=== PATIENT | male | born 1985 | race Caucasian/White ===

== ENCOUNTER 2016-08-19 04:12 | Emergency (ER) | payer OTHER ==
[~2016-08-19] VITALS: Ht 180.3 cm; Wt 97.0 kg
[~2016-08-19 04:12] MED LIST: FLUT9.9S NASAL; IBUP-1542 PO; ZOF8 PO
[2016-08-19 04:17] VITALS: Ht 180.3 cm; Wt 97.0 kg
[2016-08-19] MEDS ORDERED: FLUT9.9S NASAL (04:46)
[2016-08-19] MEDS ORDERED: IBUP-1542 PO (04:46)
[2016-08-19] MEDS ORDERED: AMOX1TAB10 PO (04:46)
[2016-08-19] MEDS ORDERED: CETI10CA PO (04:46)
--- NOTE | 2016-08-19 05:13 | ERD ---
ER Documentation Chief Complaint Date/Time DATE: 08/19/16 TIME: 05:11 Chief Complaint SEVERE SINUS PRESSURE/PAIN WITH RIGHT SIDED MOUTH PAIN X 1 WK. WORSE TONIGH HPI 31-year-old male presents here in emergency department for complaint right facial pain runny nose nasal congestion, purulent discharge from the right naris started one week ago. Patient discussed the pain as throbbing pain, 6/10 scale, feels pressure in the right side of the face. Patient denies any trauma. Patient denies any fever or chills. Patient denies any swelling. Patient is not to open and close the mouth without any difficulty. ROS All systems reviewed and are negative except as per history of present illness. Medications Home Meds Active Scripts Cetirizine Hcl* (Zyrtec*) 10 Mg Capsule, 10 MG PO DAILY, #30 TAB.CHEW Prov:JANIS SANCHEZ NP 08/19/16 Fluticasone Propionate (Flonase Allergy Relief) 9.9 [address] [place].susp, 2 SPRAY NASAL DAILY, #1 BOTTLE TO EACH NOSTRIL Prov:JANIS SANCHEZ NP 08/19/16 Ibuprofen* (Motrin*) 600 Mg Tab, 600 MG PO Q6H Y for PAIN AND OR ELEVATED TEMP, #30 TAB Prov:JANIS SANCHEZ NP 08/19/16 Amoxicillin/Potassium Clav (Amox-Clav 875-125 mg Tablet) 875-125 mg Tab, 1 TAB PO BID for 7 Days, #14 TAB Prov:JANIS SANCHEZ NP 08/19/16 Fluticasone Propionate (Flonase Allergy Relief) 9.9 [address] [place].susp, 1 SPRAY NASAL DAILY, #1 BOTTLE TO EACH NOSTRIL Prov:MAU KENNY DO 04/14/15 Ondansetron Hcl* (Zofran* ODT) 8 mg -ODT Tab.disper, 8 MG PO Q6 Y for NAUSEA AND /OR VOMITING, #10 TAB Prov:LUIS WHITNEY PA-C 02/10/15 Ibuprofen* (Ibuprofen*) 600 Mg Tablet, 600 MG PO Q6H Y for PA, #30 TAB Prov:JANIS SANCHEZ NP 11/29/14 Allergies Allergies: Coded Allergies: No Known Allergy (Unverified , 02/10/15) PMhx/Soc Medical and Surgical Hx: pt denies Medical Hx, pt denies Surgical Hx History of Surgery: No Anesthesia Reaction: No Hx Neurological Disorder: No Hx Respiratory Disorders: No Hx Cardiac Disorders: No Hx Psychiatric Problems: No Hx Miscellaneous Medical Probl: No Hx Alcohol Use: No Hx Substance Use: No Hx Tobacco Use: No Smoking Status: Never smoker FmHx Family History: No coronary disease, No diabetes, No other Physical Exam Vitals Vital Signs Date Time Temp Pulse Resp B/P Pulse Ox O2 Delivery O2 Flow Rate FiO2 08/19/16 04:17 97.7 67 20 148/100 96 Physical Exam GENERAL: The patient is well developed and appropriate for usual state of health, in no apparent distress. HEENT: Atraumatic. Ears: Normal tympanic membrane, no erythema or bulging. No ear canal swelling. No ear discharge. Nose: Right naris noted to be erythematous , no purulent discharge noted at this time. Right maxillary sinus tenderness noted. Left naris is normal, normal nasal discharge. Nontender left maxillary sinus. Throat: oropharynx clear. No tonsillar swelling or tonsillar exudates. No lymphadenopathy. CHEST: Clear to auscultation bilaterally. There are no rales, wheezes or rhonchi. HEART: Regular rate and rhythm. No murmurs, clicks, rubs or gallops. No S3 or S4. ABDOMEN: Soft, nontender and nondistended. Good bowel sounds. No rebound or guarding. No gross peritonitis. No gross organomegaly or masses. No De La Cruz sign or McBurney point tenderness. BACK: No midline or flank tenderness. EXTREMITIES: Equal pulses bilaterally. There is no peripheral clubbing, cyanosis or edema. No focal swelling or erythema. Full range of motion. Grossly neurovascularly intact. NEURO: Alert and oriented. Cranial nerves 2-12 intact. Motor strength in all 4 extremities with 5/5 strength. Sensation grossly intact. Normal speech and gait. SKIN: There is no apparent rash or petechia. The skin is warm and dry. HEMATOLOGIC AND LYMPHATIC: There is no evidence of excessive bruising or lymphedema. No gross cervical, axillary, or inguinal lymphadenopathy. Procedures/MDM Medical decision making: Patient's symptoms most likely consistent with acute rhinosinusitis. Most likely bacterial. No symptoms of sepsis. Patient appears well and is hemodynamically STABLE. No symptoms of facial cellulitis. Patient was given a prescription for ibuprofen, Augmentin, Flonase, Zyrtec, is advised to apply warm compresses on affected area, follow-up with primary care doctor in 2-3 days for reevaluation of symptoms. Patient is advised to return to emergency department for any worsening symptoms. Departure Diagnosis: Primary Impression: Acute rhinosinusitis Condition: Stable Patient Instructions: Sinusitis, JANIS Rowe NP Aug 19, 2016 05:13
== END 2016-08-19 06:02 | disposition home or self-care (01) ==
LOC: FTE 04:12
DX: J01.00 Acute maxillary sinusitis, unspecified (principal)
CPT/HCPCS: 99283

== ENCOUNTER 2016-10-19 10:21 | Emergency (ER) | payer OTHER ==
[~2016-10-19] VITALS: Wt 92.5 kg
[~2016-10-19 10:21] MED LIST changes: +AMOX1TAB10 PO; +CETI10CA PO
[2016-10-19] MEDS ORDERED: CEPH-443 PO (11:06)
--- NOTE | 2016-10-19 11:16 | ERD ---
ER Documentation Chief Complaint Date/Time DATE: 10/19/16 TIME: 11:12 Chief Complaint R THUMB SWELLING FROM DOG BITE. SOME REDNESS AND DRAINAGE HPI This is a 31-year-old male presenting to the emergency department after a dog scratch. Patient states yesterday he was scratched by his dog on his right thumb. Patient states this morning he noticed erythema and yellow drainage from scratch. Denies pain. No numbness or tingling. No loss of sensation. Patient has full mobility in all digits to right hand. Patient had recent tetanus shot within the last 5 years. ROS All systems reviewed and are negative except as per history of present illness. Medications Home Meds Active Scripts Cephalexin* (Keflex*) 500 Mg Capsule, 500 MG PO QID for 5 Days, CAP Prov:SILVANA KEVIN NP 10/19/16 Cetirizine Hcl* (Zyrtec*) 10 Mg Capsule, 10 MG PO DAILY, #30 TAB.CHEW Prov:JANIS SANCHEZ NP 08/19/16 Fluticasone Propionate (Flonase Allergy Relief) 9.9 Ml [place].susp, 2 SPRAY NASAL DAILY, #1 BOTTLE TO EACH NOSTRIL Prov:JANIS SANCHEZ NP 08/19/16 Ibuprofen* (Motrin*) 600 Mg Tab, 600 MG PO Q6H Y for PAIN AND OR ELEVATED TEMP, #30 TAB Prov:JANIS SANCHEZ NP 08/19/16 Amoxicillin/Potassium Clav (Amox-Clav 875-125 mg Tablet) 875-125 mg Tab, 1 TAB PO BID for 7 Days, #14 TAB Prov:JANIS SANCHEZ NP 08/19/16 Fluticasone Propionate (Flonase Allergy Relief) 9.9 Ml [place].susp, 1 SPRAY NASAL DAILY, #1 BOTTLE TO EACH NOSTRIL Prov:MAU KENNY DO 04/14/15 Ondansetron Hcl* (Zofran* ODT) 8 mg -ODT Tab.disper, 8 MG PO Q6 Y for NAUSEA AND /OR VOMITING, #10 TAB Prov:LUIS WHITNEY PA-C 02/10/15 Ibuprofen* (Ibuprofen*) 600 Mg Tablet, 600 MG PO Q6H Y for PA, #30 TAB Prov:JANIS SANCHEZ BERNAL TGeorgie HERNANDEZ 11/29/14 Allergies Allergies: Coded Allergies: No Known Allergy (Unverified , 02/10/15) PMhx/Soc Medical and Surgical Hx: pt denies Medical Hx, pt denies Surgical Hx History of Surgery: No Anesthesia Reaction: No Hx Neurological Disorder: No Hx Respiratory Disorders: No Hx Cardiac Disorders: No Hx Psychiatric Problems: No Hx Miscellaneous Medical Probl: No Hx Alcohol Use: No Hx Substance Use: No Hx Tobacco Use: No Physical Exam Vitals Vital Signs Date Time Temp Pulse Resp B/P Pulse Ox O2 Delivery O2 Flow Rate FiO2 10/19/16 10:25 98.0 60 21 133/78 97 Physical Exam Const: No acute distress, alert Head: Atraumatic Eyes: Normal Conjunctiva ENT: Normal External Ears, Nose and Mouth. Neck: Full range of motion..~ No meningismus. Resp: Clear to auscultation bilaterally Cardio: Regular rate and rhythm, no murmurs Abd: Soft, non tender, non distended. Normal bowel sounds Skin: Small 1 cm circular erythema surrounding laceration to dorsal aspect of right thumb. Capillary refill less than 3 seconds. Sensation fully intact. Full mobility to all 5 digits on right hand. Radial pulse 2+. Back: No midline or flank tenderness Ext: No cyanosis, or edema Neur: Awake and alert Psych: Normal Mood and Affect Procedures/MDM MDM: This is a 31-year-old male presenting to emergency department with erythema and yellow drainage from dog scratch from yesterday. Physical exam reveals small laceration to right thumb with surrounding erythema. Patient states there was yellow drainage this morning. No drainage while in the ED. Vital signs are stable. Patient denies pain. Incision is fully intact. Denies numbness, tingling or loss of sensation. Patient has full mobility. Low suspicion for deep space infection or abscess. Patient likely has cellulitis. Patient is appropriate for outpatient management and will be given prescription for Keflex. Instructed patient to return to ED in 2 days for wound check. May follow-up with primary care provider for reassessment or additional management. Resources provided. Return to ED for any high fever, chest pain, difficulty breathing, shortness breath, wheezing, vomiting, diarrhea, abdominal pain or any new or worsening symptoms. Patient verbalizes understanding. All questions answered at discharge. Departure Diagnosis: Primary Impression: Cellulitis Site of cellulitis: extremity Site of cellulitis of extremity: finger Laterality: right Qualified Code: L03.011 - Cellulitis of finger of right hand Condition: Stable Patient Instructions: Cellulitis Referrals: [facility] YOU HAVE RECEIVED A MEDICAL SCREENING EXAM AND THE RESULTS INDICATE THAT YOU DO NOT HAVE A CONDITION THAT REQUIRES URGENT TREATMENT IN THE EMERGENCY DEPARTMENT. FURTHER EVALUATION AND TREATMENT OF YOUR CONDITION CAN WAIT UNTIL YOU ARE SEEN IN YOUR DOCTORS OFFICE WITHIN THE NEXT 1-2 DAYS. IT IS YOUR RESPONSIBILITY TO MAKE AN APPOINTMENT FOR FOLOW-UP CARE. IF YOU HAVE A PRIMARY DOCTOR --you should call your primary doctor and schedule an appointment IF YOU DO NOT HAVE A PRIMARY DOCTOR YOU CAN CALL OUR PHYSICIAN REFERRAL HOTLINE AT IF YOU CAN NOT AFFORD TO SEE A PHYSICIAN YOU CAN CHOSE FROM THE FOLLOWING [facility] [address] [facility] [address] [facility] [address] [facility] [address] [facility] [address] [facility]. [facility] [address] [facility]. [facility] YOU HAVE RECEIVED A MEDICAL SCREENING EXAM AND THE RESULTS INDICATE THAT YOU DO NOT HAVE A CONDITION THAT REQUIRES URGENT TREATMENT IN THE EMERGENCY DEPARTMENT. FURTHER EVALUATION AND TREATMENT OF YOUR CONDITION CAN WAIT UNTIL YOU ARE SEEN IN YOUR DOCTORS OFFICE WITHIN THE NEXT 1-2 DAYS. IT IS YOUR RESPONSIBILITY TO MAKE AN APPOINTMENT FOR FOLOW-UP CARE. IF YOU HAVE A PRIMARY DOCTOR --you should call your primary doctor and schedule and appointment IF YOU DO NOT HAVE A PRIMARY DOCTOR YOU CAN CALL OUR PHYSICIAN REFERRAL HOTLINE AT . IF YOU CAN NOT AFFORD TO SEE A PHYSICIAN YOU CAN CHOSE FROM THE FOLLOWING [facility] INSTITUTIONS: [facility] [address] [place] [address] [facility] [address] [place] [address] [facility] [address] [place] [address] Additional Instructions: Return to ED in 2 days for wound check. Return to ED for any high fever, chest pain, difficulty breathing, shortness breath, wheezing, vomiting, diarrhea, abdominal pain or any new or worsening symptoms. SILVANA KEVIN NP Oct 19, 2016 11:16
== END 2016-10-19 11:30 | disposition home or self-care (01) ==
LOC: FTE 10:21
DX: S61.011A Laceration without foreign body of right thumb without damage to nail, initial encounter (principal); L03.011 Cellulitis of right finger; W54.0XXA Bitten by dog, initial encounter; Y92.9 Unspecified place or not applicable
CPT/HCPCS: 99283

== ENCOUNTER 2016-10-22 21:45 | Emergency (ER) | payer OTHER ==
[~2016-10-22] VITALS: Ht 172.7 cm; Wt 94.0 kg
[~2016-10-22 21:45] MED LIST changes: +CEPH-443 PO
[2016-10-22 21:47] VITALS: Ht 172.7 cm; Wt 94.0 kg
--- NOTE | 2016-10-22 23:17 | ERD ---
ER Documentation Chief Complaint Date/Time DATE: 10/22/16 TIME: 23:16 Chief Complaint wound check right thumb HPI 31-year-old male presents to the emergency room for a wound check of a dog abrasion that occurred a few days prior to being seen. Patient denies any fevers, purulence, increased pain. He states that he is compliant with medication ROS All systems reviewed and are negative except as per history of present illness. Medications Home Meds Active Scripts Cephalexin* (Keflex*) 500 Mg Capsule, 500 MG PO QID for 5 Days, CAP Prov:SILVANA KEVIN NP 10/19/16 Cetirizine Hcl* (Zyrtec*) 10 Mg Capsule, 10 MG PO DAILY, #30 TAB.CHEW Prov:JANIS SANCHEZ NP 08/19/16 Fluticasone Propionate (Flonase Allergy Relief) 9.9 Ml [place].susp, 2 SPRAY NASAL DAILY, #1 BOTTLE TO EACH NOSTRIL Prov:JANIS SANCHEZ NP 08/19/16 Ibuprofen* (Motrin*) 600 Mg Tab, 600 MG PO Q6H Y for PAIN AND OR ELEVATED TEMP, #30 TAB Prov:JANIS SANCHEZ NP 08/19/16 Amoxicillin/Potassium Clav (Amox-Clav 875-125 mg Tablet) 875-125 mg Tab, 1 TAB PO BID for 7 Days, #14 TAB Prov:JANIS SANCHEZ NP 08/19/16 Fluticasone Propionate (Flonase Allergy Relief) 9.9 Ml [place].susp, 1 SPRAY NASAL DAILY, #1 BOTTLE TO EACH NOSTRIL Prov:MAU KENNY DO 04/14/15 Ondansetron Hcl* (Zofran* ODT) 8 mg -ODT Tab.disper, 8 MG PO Q6 Y for NAUSEA AND /OR VOMITING, #10 TAB Prov:LUIS WHITNEY PA-C 02/10/15 Ibuprofen* (Ibuprofen*) 600 Mg Tablet, 600 MG PO Q6H Y for PA, #30 TAB Prov:JANIS SANCHEZ [employer] 11/29/14 Allergies Allergies: Coded Allergies: No Known Allergy (Unverified , 02/10/15) PMhx/Soc Medical and Surgical Hx: pt denies Medical Hx, pt denies Surgical Hx History of Surgery: No Anesthesia Reaction: No Hx Neurological Disorder: No Hx Respiratory Disorders: No Hx Cardiac Disorders: No Hx Psychiatric Problems: No Hx Miscellaneous Medical Probl: No Hx Alcohol Use: No Hx Substance Use: No Hx Tobacco Use: No Smoking Status: Never smoker Physical Exam Vitals Vital Signs Date Time Temp Pulse Resp B/P Pulse Ox O2 Delivery O2 Flow Rate FiO2 10/22/16 21:47 98.2 69 20 117/76 100 Physical Exam General: WD/WN, in no apparent distress, non-toxic appearing HENT: NC/AT Eyes: Conjunctiva normal Neck: Supple Pulm: Clear to auscultation, normal labored breathing; no wheezing/rales/ rhonchi heard CV: Good capillary refill GI: Non-distended, no guarding Back: No masses Ext: No clubbing, cyanosis, or edema Neuro: Moves on all fours Skin: Abrasion on left Psych: Normal mood Procedures/MDM This is a 31-year-old male presenting to the emergency room for a wound check of a dog abrasion that occurred a couple days prior to being seen. There was no signs of cellulitis, patient has full range of motion. He stable to be discharged home with precautions to return emergency department for any worsening sinus symptoms. Discussed to continue his Augmentin. He understands and agrees with plan Departure Diagnosis: Primary Impression: Encounter for wound re-check Condition: Stable Patient Instructions: Wound Care Additional Instructions: Return to this facility if you are not improving as expected. LUIS WHITNEY PA-C Oct 22, 2016 23:17
[2016-10-23 00:06] VITALS: BP 102/67; PULSE 70; RESP 14
== END 2016-10-23 00:07 | disposition home or self-care (01) ==
LOC: FTE 21:45
DX: Z48.01 Encounter for change or removal of surgical wound dressing (principal)
CPT/HCPCS: 99281

== ENCOUNTER 2017-04-28 23:26 | Emergency (ER) | END 2017-04-29 02:41 | disposition home or self-care (01) ==

== ENCOUNTER 2018-05-19 13:25 | Emergency (ER) | payer OTHER ==
[~2018-05-19] VITALS: Ht 167.6 cm; Wt 91.0 kg
[~2018-05-19 13:25] MED LIST changes: +ACET500C5 PO; +CODE10LI PO
[2018-05-19 13:35] VITALS: Ht 167.6 cm; Wt 91.0 kg
[2018-05-19] MEDS ORDERED: IBUP-1542 PO (16:18)
[2018-05-19] MEDS ORDERED: ONDA8TAB14 PO (16:19)
--- NOTE | 2018-05-19 16:24 | ERD ---
ER Documentation Chief Complaint Chief Complaint VOMITING & ABNORMLLY LOW BP AT HOME HPI 32-year-old male presents with multiple complaints. Approximately 1-2 weeks ago he had URI symptoms which resolved. He then had vomiting diarrhea for approximately 2 days. Vomit is nonbilious nonbloody. Those symptoms have resolved as well. He has some mild persistent nausea. He has primary complaints of a posterior head discomfort. He has intermittent dizziness and nausea and blurry vision. He is concerned that the blood is being cut off to his brain. Denies any history of trauma, fevers, deficits, weakness. Patient additionally is checking his blood pressure at home and is concerned that he had a few values that were low. His blood pressure is 141/86 at triage ROS All systems reviewed and are negative except as per history of present illness. Medications Home Meds Active Scripts Ondansetron (Ondansetron Odt) 8 Mg Tab.rapdis, 8 MG PO Q6H PRN for NAUSEA AND/OR VOMITING, #8 TAB Prov:GLADYS BROCK MD 05/19/18 Ibuprofen* (Motrin*) 600 Mg Tab, 600 MG PO Q6, #20 TAB Prov:GLADYS BROCK MD 05/19/18 Acetaminophen* (Tylophen*) 500 Mg Capsule, 1 CAP PO Q6H PRN for PAIN AND OR ELEVATED TEMP, #20 CAP Prov:JANIS SANCHEZ NP 04/29/17 Ibuprofen* (Motrin*) 600 Mg Tab, 600 MG PO Q6H PRN for PAIN AND OR ELEVATED TEMP, #30 TAB Prov:JANIS SANCHEZ NP 04/29/17 Codeine Phosphate/Guaifenesin (Guaifen-Codeine 200-20 mg/10Ml) 10 Ml Liquid, 5 ML PO Q6, #60 ML Prov:JANIS SANCHEZ NP 04/29/17 Cephalexin* (Keflex*) 500 Mg Capsule, 500 MG PO QID for 5 Days, CAP Prov:SILVANA KEVIN NP 10/19/16 Cetirizine Hcl* (Zyrtec*) 10 Mg Capsule, 10 MG PO DAILY, #30 TAB.CHEW Prov:JANIS SANCHEZ NP 08/19/16 Fluticasone Propionate (Flonase Allergy Relief) 9.9 Ml [place].susp, 2 SPRAY NASAL DAILY, #1 BOTTLE TO EACH NOSTRIL Prov:JANIS SANCHEZ NP 08/19/16 Ibuprofen* (Motrin*) 600 Mg Tab, 600 MG PO Q6H PRN for PAIN AND OR ELEVATED TEMP, #30 TAB Prov:JANIS SANCHEZ [employer] 08/19/16 Amoxicillin/Potassium Clav (Amox-Clav 875-125 mg Tablet) 875-125 mg Tab, 1 TAB PO BID for 7 Days, #14 TAB Prov:JANIS SANCHEZ [employer] 08/19/16 Fluticasone Propionate (Flonase Allergy Relief) 9.9 Ml [place].susp, 1 SPRAY NASAL DAILY, #1 BOTTLE TO EACH NOSTRIL Prov:MAU KENNY DO 04/14/15 Ondansetron Hcl* (Zofran* ODT) 8 mg -ODT Tab.disper, 8 MG PO Q6 PRN for NAUSEA AND/OR VOMITING, #10 TAB Prov:LUIS WHITNEY PA-C 02/10/15 Ibuprofen* (Ibuprofen*) 600 Mg Tablet, 600 MG PO Q6H PRN for PA, #30 TAB Prov:JANIS SANCHEZ NP 11/29/14 Allergies Allergies: Coded Allergies: No Known Allergy (Unverified , 05/19/18) PMhx/Soc History of Surgery: No Anesthesia Reaction: No Hx Neurological Disorder: No Hx Respiratory Disorders: No Hx Cardiac Disorders: No Hx Psychiatric Problems: No Hx Miscellaneous Medical Probl: No Hx Alcohol Use: No Hx Substance Use: No Hx Tobacco Use: No FmHx Family History: No diabetes, No coronary disease, No other Physical Exam Vitals Vital Signs Date Temp Pulse Resp B/P (MAP) Pulse Ox O2 O2 Flow FiO2 Time Delivery Rate 05/19/18 98.2 74 18 138/68 99 Room Air 16:25 (91) 05/19/18 98.5 63 18 141/86 98 13:35 (104) Physical Exam Const: No acute distress Head: Atraumatic Eyes: Normal Conjunctiva ENT: Normal External Ears, Nose and Mouth. Neck: Full range of motion. No meningismus. Resp: Clear to auscultation bilaterally Cardio: Regular rate and rhythm, no murmurs Abd: Soft, non tender, non distended. Normal bowel sounds Skin: No petechiae or rashes Back: No midline or flank tenderness Ext: No cyanosis, or edema Neur: Awake and alert Psych: Normal Mood and Affect Result Diagram: 05/19/18 1529 05/19/18 1529 Results 24 hrs Laboratory Tests Test 05/19/18 15:29 White Blood Count 5.2 10^3/ul Red Blood Count 5.31 10^6/ul Hemoglobin 15.7 g/dl Hematocrit 45.4 % Mean Corpuscular Volume 85.5 fl Mean Corpuscular Hemoglobin 29.6 pg Mean Corpuscular Hemoglobin Concent 34.6 g/dl Red Cell Distribution Width 13.1 % Platelet Count 253 10^3/UL Mean Platelet Volume 9.5 fl Immature Granulocytes % 0.400 % Neutrophils % % Segmented Neutrophils % (Manual) 73 % Lymphocytes % % Lymphocytes % (Manual) 25 % Monocytes % % Monocytes % (Manual) 1 % Eosinophils % % Eosinophils % (Manual) 1 % Basophils % % Nucleated Red Blood Cells % 1 % Immature Granulocytes # 0.020 10^3/ul Neutrophils # 10^3/ul Lymphocytes (Manual) 1.3 10^3/ul Lymphocytes # 10^3/ul Monocytes # 10^3/ul Monocytes # (Manual) 0.0 10^3/ul Eosinophils # 10^3/ul Basophils # 10^3/ul Nucleated Red Blood Cells # 10^3/ul Platelet Estimate NORMAL Sodium Level 141 mmol/L Potassium Level 4.1 mmol/L Chloride Level 107 mmol/L Carbon Dioxide Level 25 mmol/L Anion Gap 9 Blood Urea Nitrogen 10 mg/dl Creatinine 0.85 mg/dl Est Glomerular Filtrat Rate mL/min > 60 mL/min Glucose Level 122 mg/dl Calcium Level 9.8 mg/dl Total Bilirubin 0.3 mg/dl Direct Bilirubin 0.00 mg/dl Indirect Bilirubin 0.3 mg/dl Aspartate Amino Transf (AST/SGOT) 27 IU/L Alanine Aminotransferase (ALT/SGPT) 46 IU/L Alkaline Phosphatase 92 IU/L Total Protein 7.2 g/dl Albumin 4.4 g/dl Globulin 2.80 g/dl Albumin/Globulin Ratio 1.57 Procedures/MDM CBC and CMP are normal. CT brain shows no acute abnormalities. Patient presents with posterior head discomfort, sensation of dizziness and of the blood bank but after his brain. He has had a history of vomiting diarrhea which appears resolved. Is no evidence of deficits, signs of meningismus, chest pain, abdominal pain. Patient does admit to a history of anxiety which is certainly a consideration. He will be discharged home with further observation at home, rest, primary care follow-up and return precautions. The patient was stable with no new complaints during the ER course. Clinically, there is no current evidence to suggest meningitis, sepsis, acute abdomen, pneumonia, stroke, acute coronary syndrome, pulmonary embolism, aortic dissection or any other emergent condition appearing to require further evaluation or hospitalization. Patient counseled regarding my diagnostic impression and care plan. Prior to discharge all questions answered. Pt agrees with treatment plan and understands strict return precautions. Pt is instructed to follow up with primary care provider within 24-48 hours. Precautionary instructions provided including instructions to return to the ER if not improving or for any worsening or changing symptoms or concerns. Departure Diagnosis: Primary Impression: Headache Headache type: unspecified Headache chronicity pattern: unspecified pa ttern Intractability: not intractable Qualified Codes: R51 - Headache Additional Impression: Vomiting Vomiting type: unspecified Vomiting Intractability: unspecified Nausea presence: unspecified Qualified Codes: R11.10 - Vomiting, unspecified Condition: Stable Patient Instructions: Self-Care for Headaches, Vomiting (6Y-Adult) Additional Instructions: Examinations normal today. Uncertain cause of symptoms. Recommend rest, fluids at home. Recheck for new or worsening symptoms with primary care doctor. GLADYS BROCK MD May 19, 2018 16:24
[2018-05-19 16:25] VITALS: BP 138/68; PULSE 74; RESP 18
== END 2018-05-19 16:25 | disposition home or self-care (01) ==
LOC: FTE 13:25
DX: R11.10 Vomiting, unspecified (principal); R51 Headache
CPT/HCPCS: 70450; 80053; 85025; Z7502

== ENCOUNTER 2018-07-07 05:04 | Emergency (ER) | payer OTHER ==
[~2018-07-07] VITALS: Ht 175.3 cm; Wt 91.1 kg
[~2018-07-07 05:04] MED LIST changes: +ONDA8TAB14 PO
[2018-07-07 05:08] VITALS: Ht 175.3 cm; Wt 91.1 kg
[2018-07-07] MEDS ORDERED: LORAZEPAM 1 MG TAB PO ONE (05:30)
--- NOTE | 2018-07-07 05:40 | ERD ---
ER Documentation Chief Complaint Chief Complaint ANXIETY AFTER TAKING CBD PILL HPI 33-year-old male is here because he took a CBD pill last night and woke up feeling very anxious and "weird." He states he cannot sit still and is been moving his hands around and has difficulty walking. No chest pain or palpitations. No shortness of breath or diaphoresis. Denies any other alcohol smoking or drugs. ROS All systems reviewed and are negative except as per history of present illness. Medications Home Meds Active Scripts Ondansetron (Ondansetron Odt) 8 Mg Tab.rapdis, 8 MG PO Q6H PRN for NAUSEA AND/OR VOMITING, #8 TAB Prov:GLADYS BROCK MD 05/19/18 Ibuprofen* (Motrin*) 600 Mg Tab, 600 MG PO Q6, #20 TAB Prov:GLADYS BROCK MD 05/19/18 Acetaminophen* (Tylophen*) 500 Mg Capsule, 1 CAP PO Q6H PRN for PAIN AND OR ELEVATED TEMP, #20 CAP Prov:JANIS SANCHEZ NP 04/29/17 Ibuprofen* (Motrin*) 600 Mg Tab, 600 MG PO Q6H PRN for PAIN AND OR ELEVATED TEMP, #30 TAB Prov:JANIS SANCHEZ NP 04/29/17 Codeine Phosphate/Guaifenesin (Guaifen-Codeine 200-20 mg/10Ml) 10 Ml Liquid, 5 ML PO Q6, #60 ML Prov:JANIS SANCHEZ NP 04/29/17 Cephalexin* (Keflex*) 500 Mg Capsule, 500 MG PO QID for 5 Days, CAP Prov:SILVANA KEVIN NP 10/19/16 Cetirizine Hcl* (Zyrtec*) 10 Mg Capsule, 10 MG PO DAILY, #30 TAB.CHEW Prov:JANIS SANCHEZ NP 08/19/16 Fluticasone Propionate (Flonase Allergy Relief) 9.9 Ml [place].susp, 2 SPRAY NASAL DAILY, #1 BOTTLE TO EACH NOSTRIL Prov:JANIS SANCHEZ NP 08/19/16 Ibuprofen* (Motrin*) 600 Mg Tab, 600 MG PO Q6H PRN for PAIN AND OR ELEVATED TEMP, #30 TAB Prov:JANIS SANCHEZ NP 08/19/16 Amoxicillin/Potassium Clav (Amox-Clav 875-125 mg Tablet) 875-125 mg Tab, 1 TAB PO BID for 7 Days, #14 TAB Prov:JANIS SANCHEZ NP 08/19/16 Fluticasone Propionate (Flonase Allergy Relief) 9.9 Ml [place].susp, 1 SPRAY NASAL DAILY, #1 BOTTLE TO EACH NOSTRIL Prov:MAU KENNY DO 04/14/15 Ondansetron Hcl* (Zofran* ODT) 8 mg -ODT Tab.disper, 8 MG PO Q6 PRN for NAUSEA AND/OR VOMITING, #10 TAB Prov:LUIS WHITNEY PA-C 02/10/15 Ibuprofen* (Ibuprofen*) 600 Mg Tablet, 600 MG PO Q6H PRN for PA, #30 TAB Prov:JANIS SANCHEZ [facility] 11/29/14 Allergies Allergies: Coded Allergies: No Known Allergy (Unverified , 05/19/18) PMhx/Soc History of Surgery: No Anesthesia Reaction: No Hx Neurological Disorder: No Hx Respiratory Disorders: No Hx Cardiac Disorders: No Hx Psychiatric Problems: No Hx Miscellaneous Medical Probl: No Hx Alcohol Use: No Hx Substance Use: No Hx Tobacco Use: No FmHx Family History: No diabetes Physical Exam Vitals Vital Signs Date Temp Pulse Resp B/P (MAP) Pulse Ox O2 O2 Flow FiO2 Time Delivery Rate 07/07/18 96.8 101 19 154/100 99 05:08 (118) Physical Exam INITIAL VITAL SIGNS: Reviewed by me GENERAL: Awake, alert and oriented x 4, well appearing, nontoxic, speaking in full sentences. Writhing around HEAD: Atraumatic NECK: Supple. No masses. Full range of motion. No meningismus. No midline te nderness. EYES: EOMI. PERRL. RESPIRATORY: Clear to auscultation bilaterally. Symmetric chest wall rise. No wheezing or rales. No accessory muscle use. CV: Regular rate and rhythm. No murmurs, rubs, or gallops. ABDOMEN: Soft, non-distended. Nontender. Negative [place]. Negative [place] point tenderness. No CVA tenderness bilaterally. No guarding. No rebound. NEUROLOGIC: Normal mental status and speech. Face is symmetric. Moves all extremities equally. Motor and sensory distally intact. Normal coordination. Ambulates with a strong steady gait. Results 24 hrs Current Medications Medications Dose Sig/Wily Start Time Status Last (Trade) Ordered Route PRN Stop Time Admin Dose Reason Admin Lorazepam 1 mg ONCE ONCE 07/07/18 DC (Ativan) PO 05:30 07/07/18 05:31 Procedures/MDM Patient presents with reaction to taking CBD pill. EKG was ordered and was normal sinus rhythm with no evidence of ST elevation or acute ischemic changes. He was given Ativan. Patient counseled regarding my diagnostic impression and care plan. Prior to discharge all questions answered. Pt agrees with treatment plan and understands strict return precautions. Pt is instructed to follow up with primary care provider within 24-48 hours. Precautionary instructions provided including instructions to return to the ER if not improving or for any worsening or changing symptoms or concerns. Departure Diagnosis: Primary Impression: Anxiety attack Condition: Stable TASHI SULLIVAN PA-C Jul 07, 2018 05:40
[2018-07-07] MEDS ORDERED: SOD CHLORIDE 0.9% 1,000 ML IV STA (06:09)
[2018-07-07] MEDS ORDERED: LORAZEPAM 2 MG INJ IV ONE (07:00)
[2018-07-07 08:04] VITALS: BP 116/59; PULSE 83; RESP 19
== END 2018-07-07 08:06 | disposition home or self-care (01) ==
LOC: FTE 05:04
DX: F41.9 Anxiety disorder, unspecified (principal)
CPT/HCPCS: 93005; 96374; J2060; J7030; Z7502; Z7610

== ENCOUNTER 2018-08-20 21:46 | Emergency (ER) | payer OTHER ==
[~2018-08-20] VITALS: Ht 180.3 cm; Wt 89.0 kg
[2018-08-20 22:18] VITALS: Ht 180.3 cm; Wt 89.0 kg
--- NOTE | 2018-08-21 01:18 | ERD ---
ER Documentation Chief Complaint Chief Complaint numbness to both upper/lower extremities x 1 day. no neuro deficits HPI 33-year-old male presents with numbness to his face and lower extremities since 920 he states he was at work today. And all of a sudden his face and legs went numb. He states that he did not lose consciousness or blackout. He reports that he has been dehydrated last couple days and he has been drinking plenty of Pedialyte, salt packets, Gatorade, and other drinks high and electrolytes in order to bring his blood pressure and dehydration levels up. He reports that he would be checking his blood pressure he would say 90/70 and he would think that it is too low so he would try to bring it up. He states he finally brought his blood pressure up to around 120/80 today but started feeling numb at work. He denies any neurological defects, any loss of sensation, or recent drug use. He denies any new stressors in his life, any increased anxiety or any major changes in his life. He reports that this is happened to him several times in the past including 3 months ago which resolved on itself. ROS All systems reviewed and are negative except as per history of present illness. Medications Home Meds Active Scripts Ondansetron (Ondansetron Odt) 8 Mg Tab.rapdis, 8 MG PO Q6H PRN for NAUSEA AND/OR VOMITING, #8 TAB Prov:GLADYS BROCK MD 05/19/18 Ibuprofen* (Motrin*) 600 Mg Tab, 600 MG PO Q6, #20 TAB Prov:GLADYS BROCK MD 05/19/18 Acetaminophen* (Tylophen*) 500 Mg Capsule, 1 CAP PO Q6H PRN for PAIN AND OR ELEVATED TEMP, #20 CAP Prov:JANIS SANCHEZ NP 04/29/17 Ibuprofen* (Motrin*) 600 Mg Tab, 600 MG PO Q6H PRN for PAIN AND OR ELEVATED TEMP, #30 TAB Prov:JAINS SANCHEZ NP 04/29/17 Codeine Phosphate/Guaifenesin (Guaifen-Codeine 200-20 mg/10Ml) 10 Ml Liquid, 5 ML PO Q6, #60 ML Prov:JANIS SANCHEZ NP 04/29/17 Cephalexin* (Keflex*) 500 Mg Capsule, 500 MG PO QID for 5 Days, CAP Prov:SILVANA KEVINGeorgie HERNANDEZ 10/19/16 Cetirizine Hcl* (Zyrtec*) 10 Mg Capsule, 10 MG PO DAILY, #30 TAB.CHEW Prov:JANIS SANCHEZ NP 08/19/16 Fluticasone Propionate (Flonase Allergy Relief) 9.9 Ml [place].susp, 2 SPRAY NASAL DAILY, #1 BOTTLE TO EACH NOSTRIL Prov:JANIS SANCHEZ NP 08/19/16 Ibuprofen* (Motrin*) 600 Mg Tab, 600 MG PO Q6H PRN for PAIN AND OR ELEVATED TEMP , #30 TAB Prov:JANIS SANCHEZ NP 08/19/16 Amoxicillin/Potassium Clav (Amox-Clav 875-125 mg Tablet) 875-125 mg Tab, 1 TAB PO BID for 7 Days, #14 TAB Prov:JANIS SANCHEZ NP 08/19/16 Fluticasone Propionate (Flonase Allergy Relief) 9.9 Ml [place].susp, 1 SPRAY NASAL DAILY, #1 BOTTLE TO EACH NOSTRIL Prov:MAU KENNY DO 04/14/15 Ondansetron Hcl* (Zofran* ODT) 8 mg -ODT Tab.disper, 8 MG PO Q6 PRN for NAUSEA AND/OR VOMITING, #10 TAB Prov:LUIS WHITNEY PA-C 02/10/15 Ibuprofen* (Ibuprofen*) 600 Mg Tablet, 600 MG PO Q6H PRN for PA, #30 TAB Prov:JANIS SANCHEZ NP 11/29/14 Allergies Allergies: Coded Allergies: No Known Allergy (Unverified , 05/19/18) PMhx/Soc History of Surgery: Yes Anesthesia Reaction: No Hx Neurological Disorder: No Hx Respiratory Disorders: No Hx Cardiac Disorders: No Hx Psychiatric Problems: No Hx Miscellaneous Medical Probl: No Hx Alcohol Use: No Hx Substance Use: Yes (CBD) Hx Tobacco Use: No Smoking Status: Never smoker FmHx Family History: No diabetes, No coronary disease, No other Physical Exam Vitals Vital Signs Date Temp Pulse Resp B/P (MAP) Pulse Ox O2 O2 Flow FiO2 Time Delivery Rate 08/21/18 98.5 57 18 121/71 98 Room Air 02:30 (88) 08/20/18 98.6 61 18 136/79 99 22:18 (98) Physical Exam Const: No acute distress, alert and cooperative Head: Atraumatic Eyes: Normal Conjunctiva, PERRLA ENT: Normal External Ears, Nose-midline non-boggy Mouth: [place] and moist Neck: Full range of motion. Resp: Clear to auscultation bilaterally Cardio: Regular rate and rhythm Abd: Soft, non tender, non distended. Normal bowel sounds Ext: No cyanosis, or edema Neur: No neuro deficits, good range of motion, strength, sensation all around. Cranial nerves II through XII intact. No Pronator drift. Psych: Normal Mood and Affect Result Diagram: 08/21/1811408/21/18114 Results 24 hrs Laboratory Tests Test 08/21/18 01:14 08/21/18 01:15 Urine Color STRAW Urine Clarity CLEAR Urine pH 8.0 Urine Specific [place] 1.008 Urine Ketones NEGATIVE mg/dL Urine Nitrite NEGATIVE mg/dL Urine Bilirubin NEGATIVE mg/dL Urine Urobilinogen NEGATIVE mg/dL Urine Leukocyte Esterase NEGATIVE Yobany/ul Urine Hemoglobin NEGATIVE mg/dL Urine Glucose NEGATIVE mg/dL Urine Total Protein NEGATIVE mg/dl Urine Opiates Screen Negative Urine Barbiturates Negative Urine Amphetamines Screen Negative Urine Benzodiazepines Screen Negative Urine Cocaine Screen Negative Urine Cannabinoids Negative White Blood Count 7.4 10^3/ul Red Blood Count 5.58 10^6/ul Hemoglobin 16.4 g/dl Hematocrit 48.4 % Mean Corpuscular Volume 86.7 fl Mean Corpuscular Hemoglobin 29.4 pg Mean Corpuscular Hemoglobin Concent 33.9 g/dl Red Cell Distribution Width 12.8 % Platelet Count 247 10^3/UL Mean Platelet Volume 9.3 fl Immature Granulocytes % 0.400 % Neutrophils % 59.2 % Lymphocytes % 31.8 % Monocytes % 6.1 % Eosinophils % 1.8 % Basophils % 0.7 % Nucleated Red Blood Cells % 0.0 /100WBC Immature Granulocytes # 0.030 10^3/ul Neutrophils # 4.4 10^3/ul Lymphocytes # 2.4 10^3/ul Monocytes # 0.5 10^3/ul Eosinophils # 0.1 10^3/ul Basophils # 0.1 10^3/ul Nucleated Red Blood Cells # 0.0 10^3/ul Sodium Level 143 mmol/L Potassium Level 4.1 mmol/L Chloride Level 103 mmol/L Carbon Dioxide Level 28 mmol/L Anion Gap 12 Blood Urea Nitrogen 13 mg/dl Creatinine 0.98 mg/dl Est Glomerular Filtrat Rate mL/min > 60 mL/min Glucose Level 95 mg/dl Calcium Level 9.7 mg/dl Procedures/MDM ED COURSE: The patient was stable throughout ED course. I kept the patient informed of laboratory and diagnostic imaging results throughout the ED course. MEDICAL DECISION MAKING: Patient is a 33 year old male presenting with an episode of numbness in his face and lower extremities earlier today at work. He reports that he has been trying to raise his BP by intaking Salt packs, Gatorade, Pedialyte, and other high sodium and high electrolyte drinks. He reports that he was concerned that his BP was slightly lower when he records it at home with his BP machine. He has felt slightly tired and fatigued lately. In the ED today, he feels ok. He denies any numbness or tingling anywhere. He shows no signs of neurologic deficit. Neuro exam was normal along with normal CBC, BMP, and urinalysis. Drug screen was negative. H&P and other data not c/w emergent process (eg. Subarachnoid hemorrhage, acute vertebral or carotid dissection, intracranial mass, epidural hematoma, subdural hematoma, dural venous sinus thrombosis, pseudotumor cerebri, meningitis, mass, intracranial bleed). Vital signs were reviewed. Patient is afebrile. Patient was not hypoxic. Patient was hemodynamically stable. Pt was counseled on not trying to raise BP to a certain magic number of 120/80. Pt counseled on body's homeostasis and told to follow up with PCP for further management. PRESCRIPTION: none DISCHARGE: At this time, patient is stable for discharge and outpatient management. I have instructed the patient to follow-up with his/her primary care physician in 1-2 days. I have discussed with the patient the possibility of needing to see a specialist for further workup and imaging studies if symptoms persist. I have instructed the patient to promptly return to the ER for any new or worsening symptoms including increased pain, fever, nausea, vomiting, weakness or LOC. The patient and/or family expressed understanding of and agreement with this plan. All questions were answered. Home care instructions were provided. Disclaimer: Inadvertent spelling and grammatical errors are likely due to EHR/dictation software use and do not reflect on the overall quality of patient care. Also, please note that the electronic time recorded on this note does not necessarily reflect the actual time of the patient encounter. Departure Condition: Fair Referrals: [facility] YOU HAVE RECEIVED A MEDICAL SCREENING EXAM AND THE RESULTS INDICATE THAT YOU DO NOT HAVE A CONDITION THAT REQUIRES URGENT TREATMENT IN THE EMERGENCY DEPARTMENT. FURTHER EVALUATION AND TREATMENT OF YOUR CONDITION CAN WAIT UNTIL YOU ARE SEEN IN YOUR DOCTORS OFFICE WITHIN THE NEXT 1-2 DAYS. IT IS YOUR RESPONSIBILITY TO MAKE AN APPOINTMENT FOR FOLOW-UP CARE. IF YOU HAVE A PRIMARY DOCTOR --you should call your primary doctor and schedule an appointment IF YOU DO NOT HAVE A PRIMARY DOCTOR YOU CAN CALL OUR PHYSICIAN REFERRAL HOTLINE AT IF YOU CAN NOT AFFORD TO SEE A PHYSICIAN YOU CAN CHOSE FROM THE FOLLOWING [facility] [address] [facility]. [facility] [email or web address] [facility]. [facility] [address] [facility] [facility] [address] [facility] [address] [facility] [facility]. [address] [facility]. [facility] YOU HAVE RECEIVED A MEDICAL SCREENING EXAM AND THE RESULTS INDICATE THAT YOU DO NOT HAVE A CONDITION THAT REQUIRES URGENT TREATMENT IN THE EMERGENCY DEPARTMENT. FURTHER EVALUATION AND TREATMENT OF YOUR CONDITION CAN WAIT UNTIL YOU ARE SEEN IN YOUR DOCTORS OFFICE WITHIN THE NEXT 1-2 DAYS. IT IS YOUR RESPONSIBILITY TO MAKE AN APPOINTMENT FOR FOLOW-UP CARE. IF YOU HAVE A PRIMARY DOCTOR --you should call your primary doctor and schedule and appointment IF YOU DO NOT HAVE A PRIMARY DOCTOR YOU CAN CALL OUR PHYSICIAN REFERRAL HOTLINE AT . IF YOU CAN NOT AFFORD TO SEE A PHYSICIAN YOU CAN CHOSE FROM THE FOLLOWING [facility] INSTITUTIONS: [facility] [address] [place] [address] [facility] [address] [place] [address] [facility] + [facility] [address] [place] [address] Additional Instructions: Call your primary care doctor TOMORROW for an appointment during the next 1-2 days.See the doctor sooner or return here if your condition worsens before your appointment time. WILMA EISENBERG PA-C Aug 21, 2018 01:18
[2018-08-21 02:30] VITALS: BP 121/71; PULSE 57; RESP 18
== END 2018-08-21 02:30 | disposition home or self-care (01) ==
LOC: FTE 21:46
DX: R20.0 Anesthesia of skin (principal)
CPT/HCPCS: 36415; 80048; 80307; 81003; 85025; Z7502; 99283